=== PATIENT | female | born 1960 | race Caucasian/White ===

== ENCOUNTER 2025-01-19 10:23 | Outpatient (AMB) | payer BC, SELFPAY ==
--- NOTE | 2025-01-19 10:39 | A.OFFVIS_ITS ---
Vital Signs 01/19/25 10:46 Height 5 ft 4 in Intake Visit Reasons: 6m migraine Allergies No Known Allergies Allergy (Verified 01/13/25 09:20) HPI Comments Details: She was doing okay. Migraines have been okay. Headaches were happening up to 3x/week in spring-time with stress at end of school year, now down to about 1x/week. Tylenol usually helps if taken early enough, otherwise butalbital as needed helps. Headaches may be triggered by barometric pressure changes and stress. Sleep was okay. Teaches first grade. No recurrence of BPV. Hx of occasional mild nagging headaches with pressure changes and change of season. Severe headaches decreased after she became menopausal. Headache starts with pressure behind right eye. Right hemicranial headache going to R side of neck. There is associated nausea and vomiting. Intense photophobia, sonophobia, intolerance to smell, and black and white patterns. Takes Fioricet 2 tabs at onset. Uses about 10-20 Fioricet/month. Multiple triggers including certain smells, visual stimulation, fluorescent lights, humidity, and weather changes, hormonal triggers when she was having her periods, alcohol, sleep deprivation, and stress. She has not identified any food triggers. [facility] Medical History (Updated 01/19/25 @ 10:41 by Antoinette Tran CNP) Migraine Review of Systems Const Denies chills, Denies daytime sleepiness, Denies difficulty sleeping, Denies fatigue, Denies fever(s), Denies frequent falls, Reports headache(s), Denies increased appetite, Denies poor appetite, Denies snoring, Denies weakness, Denies weight gain and Denies weight loss Eyes Denies loss of vision ENT Denies vertigo, Denies dizziness, Reports headache(s) and Denies neck pain Card Denies chest pain at rest, Denies chest pain with activity, Denies syncope, Denies leg edema, Denies palpitations, Denies dyspnea and Denies dyspnea on exertion Resp Denies cough, Denies dyspnea, Denies dyspnea on exertion and Denies snoring GI Denies abdominal pain, Denies constipation, Denies heartburn, Denies diarrhea and Denies nausea Denies urinary frequency, Denies urinary incontinence and Denies urinary urgency Musc Denies abnormal gait, Denies back pain, Denies myalgias, Denies arthralgias, Denies neck pain, Denies numbness and Denies tingling Neuro Denies abnormal gait, Denies vertigo, Denies dizziness, Denies syncope, Denies frequent falls, Reports headache(s), Denies lack of coordination, Denies loss of vision, Denies memory loss, Denies numbness, Denies Other visual disturbances, Denies restless legs, Denies seizure-like activity, Denies tingling, Denies paresthesias, Denies tremor(s) and Denies weakness Psych Denies anxiety, Denies depression, Denies auditory hallucinations, Denies memory loss and Denies visual hallucinations Endo Denies fatigue and Denies palpitations Physical Exam Const Other: General Appearance:? normal, in no acute distress. Heart:? S1, S2 normal, no murmurs. Lungs:? clear anteriorly and posteriorly. Musculoskeletal:? normal. Extremities:? no edema. Psych:? alert, oriented, cognitive function intact, cooperative with exam. Neuro Other: Abnormal Neurological Findings:?none.? Mental Status: alert and oriented X 3. Normal attention, orientation, memory, and affect. Cranial Nerves: Pupils are equal, round, and reactive to light. External ocular muscles are intact. Visual dao are full, no ptosis. Face is symmetrical, no facial weakness or droop. Facial sensations are normal. Tongue protrudes in midline. Palate elevates symmetrically. Shoulder shrugging is normal Motor Examination: Normal muscle tone, bulk and strength. No atrophy or fasciculations. No drift of the extended upper extremities. DTR 2+. Plantars are flexor. Straight Leg Raisin degrees. Sensory Exam: Normal light touch, temperature, pinprick, vibration, and joint- position sensations. Rhomberg sign is absent. Coordination: No ataxia. No titubation. Btyvlm-ac-dghf, qydx-xkmb-qolo test, and rapid alternating movements were normal. Gait Exam: Within normal limits. Cerebellar Signs: Imbosv-dd-grac and rjzg-dk-octs is normal. No dysdiadochokinesia. Extrapyramidal System: No tremor, rigidity with normal facial expressions. No bradykinesia. No bradyphrenia. Normal arm swing and posture. No propulsion or retropulsion. Speech: Normal. No dysphasia or dysarthria. Assessment & Plan Assessment & Plan (1) Migraine: Code(s): G43.909 - Migraine, unspecified, not intractable, without status migrainosus Category: Medical Qualifiers: Intractability: not intractable Migraine type: unspecified Status migrainosus presence: without status migrainosus Qualified Code(s): G43.909 - Migraine, unspecified, not intractable, without status migrainosus Plan: Continue ztkovfklne-UDWZ-fjljozxc 50-325-40mg 2 tablets as needed q8h for migraine #30 for 30 days. (2) Benign positional vertigo: Code(s): H81.10 - Benign paroxysmal vertigo, unspecified ear Category: Medical Qualifiers: Laterality: unspecified laterality Qualified Code(s): H81.10 - Benign paroxysmal vertigo, unspecified ear Plan . Medications: New vqxvaofwgk-fjegexfhngzfn-eprs 50-325-40 mg 2 tabs PO Q8H PRN 30 tabs 5RF migraine 30 days Coding Level of Care Code Est Pt Level 3 (99084) Diagnoses Migraine without status migrainosus, not intractable, unspecified migraine type G43.909 Intractability: not intractable Migraine type: unspecified Status migrainosus presence: without status migrainosus Benign paroxysmal positional vertigo, unspecified laterality H81.10 Laterality: unspecified laterality
== END 2025-01-19 10:56 | disposition home or self-care (01) ==
LOC: HO.HSM 10:24
PROVIDERS: PCP Family Medicine; Referring Provider Family Medicine; Visit Provider Registered Nurse
DX: G43.909 Migraine, unspecified, not intractable, without status migrainosus (principal); H81.10 Benign paroxysmal vertigo, unspecified ear
CPT/HCPCS: 99213